=== PATIENT | male | born 1975 | race Two or more races ===

== ENCOUNTER 2023-12-03 07:00 | Day surgery (SDC) | payer MEDICAID ==
[~2023-12-03] VITALS: Ht 170.2 cm; Wt 127.0 kg
[2023-12-03 12:25] VITALS: O2SAT 96
[2023-12-03 14:03] VITALS: BP_SYST 158; PULSE 86; RESP 18
== END 2023-12-03 11:01 | disposition home or self-care (01) ==
LOC: SMU 07:00 → SDS 07:00
PROVIDERS: ATTEND Internal Medicine Gastroenterology
DX: R19.5 Other fecal abnormalities (principal); K21.9 Gastro-esophageal reflux disease without esophagitis; K29.50 Unspecified chronic gastritis without bleeding; K31.A0 Gastric intestinal metaplasia, unspecified; K31.89 Other diseases of stomach and duodenum; K57.30 Diverticulosis of large intestine without perforation or abscess without bleeding; K64.8 Other hemorrhoids; Z98.84 Bariatric surgery status; Z98.890 Other specified postprocedural states; Z79.899 Other long term (current) drug therapy
CPT/HCPCS: 43251; 43239; 99152; 45378; 88305; 88313; 99153; G0378; J7120